=== PATIENT | female | born 1945 | race Caucasian/White ===

== ENCOUNTER → 2017-04-12 | Outpatient (CLI) | payer OTHER, MEDICARE ==
[~2017-04-12] MED LIST: ATOR10TA82 PO; CHOL1000 PO; DIPH-416 PO; HYOS1TAB PO; IMD/2 PO; LORA-741 PO; LOSA100T33 PO; MECL25TA2 PO; MISCCAP80 PO; RIZA10TA18 PO; TRAM-10 PO; WARF3TAB6 PO; WARF4TAB PO
--- NOTE | 2017-04-12 16:38 | MAMMOGRAPHY REPORT ---
BILATERAL DIGITAL SCREENING MAMMOGRAM WITH CAD: 04/12/2017 CLINICAL HISTORY: Routine screening. Patient has no complaints. TECHNIQUE: Bilateral CC and MLO views were obtained. Current study was also evaluated with a Comput er Aided Detection (CAD) system. COMPARISON: Comparison is made to exams dated: 04/09/2016 mammogram, 04/08/2015 mammogram, 04/05/2014 mammogram, 04/04/2013 mammogram, 04/03/2012 mammogram, and 03/31/2011 mammogram - [facility]. BREAST COMPOSITION: There are scattered areas of fibroglandular density in both breasts. FINDINGS: There are mild vascular calcifications in the breasts. No suspicious mass, architectural distortion or cluster of microcalcifications is seen. IMPRESSION: ACR BI-RADS CATEGORY 1: NEGATIVE There is no mammographic evidence of malignancy. A 1 year screening mammogram is recommended. The p atient will receive written notification of the results. Approximately 10% of breast cancers are not detected with mammography. A negative mammographic repor t should not delay biopsy if a clinically suggestive mass is present. Noreen Srinivasan M.D. ay/:04/12/2017 14:45:27 Beaming Inspector: Jossy Higgins RT(R)(M), [facility] letter sent: Normal 1/2 BI-RADS Code: ACR BI-RADS Category 1: Negative
== END | disposition home or self-care (01) ==
LOC: C.MAMM 13:04
PROVIDERS: ATTEND Internal Medicine Geriatric Medicine
DX: Z12.31 Encounter for screening mammogram for malignant neoplasm of breast (principal)

== ENCOUNTER → 2017-07-29 | Outpatient (CLI) | payer OTHER, MEDICARE ==
[~2017-07-29] MED LIST changes: -ATOR10TA82 PO; +ATOR10TA88 PO; -HYOS1TAB PO; +LOSA100T26 PO; -LOSA100T33 PO; -MISCCAP80 PO; -WARF4TAB PO
[2017-07-29 14:39] LABS: BASO % 0.7 %; BASO ABS # 0.04 K/uL (0-0.2); COMPLETE YES; HEMATOCRIT 40.1 % (37-47); LYMPH % 25.9 %; LYMPH ABS # 1.42 K/uL (1.2-3.4); MEAN CELL VOLUME 87.9 fL (80-100); MEAN CORPUSCULAR HEMOGLOBIN 30.5 pg (25-34); MEAN CORPUSCULAR HGB CONC 34.7 g/dl (32-36); MEAN PLATELET VOLUME 8.9 fL (7.4-10.4); NEUT % 63.4 %; PLATELET COUNT 292 K/uL (130-400); RED BLOOD COUNT 4.56 M/uL (4.2-5.4); WHITE BLOOD COUNT 5.48 K/uL (4.8-10.8)
[2017-07-29 15:08] LABS: ALT/SGPT 28 U/L (12-78); AST/SGOT 24 U/L (15-37); BLOOD UREA NITROGEN 14 mg/dl (7-18); BUN/CREATININE RATIO 15.7 (10-20); CALCIUM 9.4 mg/dl (8.5-10.1); CARBON DIOXIDE 31 mmol/L (21-32); CHLORIDE 108 mmol/L (98-107); CHOLESTEROL 176 mg/dl (0-200); CREATININE 0.89 mg/dl (0.60-1.20); GLUCOSE 99 mg/dl (70-99); POTASSIUM 3.7 mmol/L (3.5-5.1); SODIUM 143 mmol/L (136-145)
[2017-07-29 15:18] LABS: ALB/GLOB RATIO 1.1 (0.9-2); ALKALINE PHOSPHATASE 91 U/L (45-117); HDL CHOLESTEROL 86 mg/dl; LDL CHOLESTEROL CALCULATED 69 mg/dl; TRIGLYCERIDES 105 mg/dl (0-150); VERY LOW DENSITY LIPOPROT CALC 21 mg/dl
== END | disposition home or self-care (01) ==
LOC: C.LAB 14:09
PROVIDERS: ATTEND Internal Medicine Geriatric Medicine
DX: E55.9 Vitamin D deficiency, unspecified (principal); E78.5 Hyperlipidemia, unspecified; I10 Essential (primary) hypertension; M85.80 Other specified disorders of bone density and structure, unspecified site; K52.9 Noninfective gastroenteritis and colitis, unspecified; Z79.01 Long term (current) use of anticoagulants; Z51.81 Encounter for therapeutic drug level monitoring; E72.12 Methylenetetrahydrofolate reductase deficiency

== ENCOUNTER → 2017-09-08 | Outpatient (CLI) | payer OTHER, MEDICARE ==
[~2017-09-08] MED LIST changes: +ATOR10TA82 PO; -ATOR10TA88 PO; -LOSA100T26 PO; +LOSA100T33 PO
== END | disposition home or self-care (01) ==
LOC: C.MAMM 12:22
PROVIDERS: ATTEND Internal Medicine Geriatric Medicine
DX: M85.852 Other specified disorders of bone density and structure, left thigh (principal); M85.851 Other specified disorders of bone density and structure, right thigh; E55.9 Vitamin D deficiency, unspecified

== ENCOUNTER → 2018-02-09 | Outpatient (CLI) | payer OTHER, MEDICARE ==
--- NOTE | 2018-02-09 12:54 | DIAGNOSTIC IMAGING REPORT ---
CHEST 2 VIEWS ROUTINE CLINICAL HISTORY: Hypertension. Cough. COMPARISON STUDY: Chest radiograph October 29, 2016. FINDINGS: Lung volumes are normal. No pneumothorax or pleural effusion is noted. Linear left lower lung opacity suggestive atelectasis or scarring. This is unchanged. There is no consolidation. Cardiomediastinal silhouette is stable with mild cardiomegaly. There is no evidence for pulmonary edema. There are suspected cholecystectomy clips. IMPRESSION: 1. No acute cardiopulmonary findings. 2. Linear left basilar opacity suggestive of atelectasis or scarring. Electronically signed by: Joaquín Scott M.D. 02/09/2018 12:53 PM Dictated Date/Time: 02/09/2018 12:52 PM
== END | disposition home or self-care (01) ==
LOC: C.RADBC 12:37
PROVIDERS: ATTEND Internal Medicine
DX: I10 Essential (primary) hypertension (principal)